=== PATIENT | female | born 1960 | race Caucasian/White ===

== ENCOUNTER 2020-08-06 11:21 | Observation (INO) | payer OTHER ==
[~2020-08-06] VITALS: Ht 157.5 cm; Wt 56.7 kg
--- NOTE | ~2020-08-06 | CON ---
[address] [address] CONSULTATION Name: NEMOJULIANNE J Room: [address] IN M.R.#: [id number] Admission: 08/06/20 Attend Phys: Dolly Mccoy Discharge: Date of : 64 Report #: [id number] THIS REPORT FOR: //name// cc: Benji Vega MD, Dean L. MD ~ THIS REPORT FOR: //name// CC: Benji Davidson DATE OF SERVICE: 08/06/2020 HISTORY OF PRESENT ILLNESS: This 59-year-old female patient who was evaluated by me for the possibility of stroke as I understand, but when I get the history from the patient, she said she is having pain in the neck, which radiates down to the right upper extremity. The patient was discussed with the Emergency Room physician, Dr. Raza. The patient has a prior history of laminectomy. She is also noticed weakness in the arm. She said the pain is similar to the one 3 years ago. She does appear to have urinary incontinence over the weekend. REVIEW OF SYSTEMS: Positive for pain as described above. She said she is not running any temperature. Her symptoms were reasonably controlled before that. She has not had any MRI done recently. She said she is not a diabetic. She had a hysterectomy. A 14-point review of system, according to her, is mostly noncontributory. PAST MEDICAL HISTORY: Positive for cervical laminectomy. FAMILY HISTORY: Unremarkable. SOCIAL HISTORY: She drinks alcohol occasionally. She does have a history of smoking. PHYSICAL EXAMINATION: The patient's examination is difficult to carry out because she is complaining of a lot of pain. Her higher functions and cranial nerve examination appear mostly unremarkable. As far as strength in the right upper and right lower extremity is concerned, it is difficult to tell because she says she is having a lot of pain in the right arm and that gives up. It is somewhere in the shoulder area. Her chest x-ray was mostly unremarkable. Cardiac and respiratory examination is noncontributory. Blood pressure is 130/72, respirations 16, pulse is 70, temperature is 97. LABORATORY DATA: Her hemoglobin is a trace high, but that is probably [place] [address] CONSULTATION Name: JULIANNE CHESTER Ny Room: [address]#: [id number] Admission: 08/06/20 Attend Phys: Dolly Mccoy Discharge: Date of : 64 Report #: [id number] IMPRESSION: I am concerned about this patient. She had a prior history of cervical problem and I am more concerned with the cervical spine, rather than the brain. I think we should go ahead and do a stat MRI in this patient, especially because she had some urinary incontinence. MRI was ordered, but I will make it stat and get it done tonight and see what it shows. I discussed all of it with the patient and I discussed MRIs indication, potential complication, and she understands that and she wants to proceed with it. Thank you very much for this referral. If you have any question, please feel free to contact me. By: [id number] Velez MD /parker
[2020-08-06 11:28] VITALS: BP 90/40
[2020-08-06] MEDS ORDERED: NEURONTIN 300M300 M2 PO (11:35)
[2020-08-06] MEDS ORDERED: HYDROCODON-ACE1 EAC7 PO (11:35)
[2020-08-06] MEDS ORDERED: TRAZODONE HCL50 MG PO (11:36)
[2020-08-06] MEDS ORDERED: RAYOS5 MG PO (11:36)
[2020-08-06 12:08] LABS: ABSOLUTE BASOPHILS 0.1 thou/uL (0.0-0.2); ABSOLUTE LYMPHOCYTES 2.2 thou/uL (0.8-5.3); ABSOLUTE MONOCYTES 0.4 thou/uL (0.0-1.2); ABSOLUTE NEUTROPHILS 5.6 thou/uL (1.6-8.1); BASOPHILS 1.2 %; EOSINOPHILS 0.2 %; HEMATOCRIT 48.5 % (37.0-47.0); HEMOGLOBIN 16.7 gm/dL (12.0-15.0); LYMPHOCYTES 26.5 %; MCH 33.5 pg (26.0-34.0); MCHC 34.5 g/dL (28.0-37.0); MCV 97.4 fL (80.0-100.0); MONOCYTES 4.4 %; MPV 7.3 fl. (7.2-11.1); NUCLEATED RBCS 0 /100WBC; PLATELET COUNT* 297 thou/uL (150-400); POLYS 67.7 %; RBC 4.98 mil/uL (4.20-5.00); RDW-CV 13.8 % (10.5-14.5); WBC 8.3 thou/uL (4.0-11.0)
[2020-08-06 12:19] LABS: CALCIUM 8.7 mg/dL (8.5-10.1); CREATININE 0.8 mg/dL (0.6-1.3); POTASSIUM 3.5 mmol/L (3.5-5.1)
[2020-08-06 12:22] LABS: INR 1.1; PROTIME 11.1 Seconds (9.20-11.50)
[2020-08-06 12:23] LABS: ALBUMIN 4.1 g/dL (3.4-5.0); TOTAL BILIRUBIN 0.4 mg/dL (<0.1-1.0); TOTAL PROTEIN 7.5 g/dL (6.4-8.2)
[2020-08-06 13:18] LABS: URINE BILIRUBIN NEGATIVE (Negative); URINE BLOOD NEGATIVE (Negative); URINE CLARITY CLEAR; URINE COLOR YELLOW; URINE GLUCOSE-RANDOM NEGATIVE (Negative); URINE KETONES NEGATIVE (Negative); URINE LEUKOCYTES-REFLEX NEGATIVE (Negative); URINE NITRITE-REFLEX NEGATIVE (Negative); URINE PROTEIN NEGATIVE (Negative); URINE SPECIFIC GRAVITY <= 1.005 (1.005-1.030); URINE UROBILINOGEN 0.2 E.U./dl (0.2-1.0)
[2020-08-06 18:10] VITALS: BP 130/72
[2020-08-07 04:10] VITALS: BP 119/66
[2020-08-07 06:06] LABS: HEMATOCRIT 42.8 % (37.0-47.0); MCH 33.8 pg (26.0-34.0); MCHC 34.5 g/dL (28.0-37.0); MCV 98.1 fL (80.0-100.0); MPV 7.5 fl. (7.2-11.1); RBC 4.36 mil/uL (4.20-5.00); RDW-CV 13.7 % (10.5-14.5); WBC 7.1 thou/uL (4.0-11.0)
[2020-08-07 06:14] LABS: CALCIUM 8.4 mg/dL (8.5-10.1); CREATININE 0.7 mg/dL (0.6-1.3); HEMOGLOBIN 14.7 gm/dL (12.0-15.0)
--- NOTE | 2020-08-07 07:57 | EKG ---
[place] [address] ELECTROCARDIOGRAM REPORT Name: JULIANNE CHESTER Room: [address] ADM IN .R.#: [id number] Admission: 08/06/20 Attend Phys: Jem Davidson Discharge: Date of : 64 Date of Service: 08/06/20 1222 Report #: [id number] THIS REPORT FOR: //name// [facility] ED Test Date: 2020-08-06 Test Time: 12:22:15 Pat Name: JULIANNE CHESTER Department: Room: [facility] Gender: F Hand Suture Winder: : 1960 Requested By: Yung Raza Order Number: [id number] MD: Gustavo Mojica Measurements Intervals [place] Rate: 69 P: 57 IA: 136 QRS: 37 QRSD: 85 T: 66 QT: 400 QTc: 429 Interpretive Statements Sinus rhythm No previous ECG available for comparison Electronically Signed On 08-07-2020 7:57:42 CDT by Gustavo Mojica [email or web address] <ELECTRONICALLY SIGNED> By: Gustavo Mojica MD, [facility] 08/07/20 0757 21 21 Gustavo Mojica MD, [facility] /EPI
[2020-08-07 08:30] VITALS: BP 144/78
[2020-08-07 12:15] VITALS: BP 122/74
[2020-08-07 17:09] VITALS: BP 121/64
[2020-08-07 20:00] VITALS: BP 107/66
[2020-08-08 04:00] VITALS: BP 120/70
[2020-08-08 08:00] VITALS: BP 124/74
[2020-08-08] MEDS ORDERED: PREDNISONE 10 M10 MG PO (08:20)
[2020-08-08] MEDS ORDERED: HYDROCODON-ACE1 EAC7 PO (08:20)
[2020-08-08] MEDS ORDERED: FLEXERIL PO (08:20)
[2020-08-08] MEDS ORDERED: TRAZODONE HCL50 MG PO (08:20)
[2020-08-08] MEDS ORDERED: NEURONTIN 300M300 M2 PO (08:20)
[2020-08-08] MEDS ORDERED: MIRALAX17 GM PO (09:03)
[2020-08-08] MEDS ORDERED: COLACE 100 MG100 MG PO (09:03)
[2020-08-08 11:13] VITALS: BP 124/74
[2020-08-08 14:07] LABS: ANA INTERPRETATION Negative (Negative)
== END 2020-08-08 11:38 | disposition home or self-care (01) ==
LOC: M.2W 13:23 → M.TBA-ER 13:23 → M.2W 19:20
PROVIDERS: Emergency Medicine Emergency Medical Services; Psychiatry & Neurology Neuromuscular Medicine; ADMIT Internal Medicine; ATTEND Internal Medicine
DX: M47.892 Other spondylosis, cervical region (principal); I95.9 Hypotension, unspecified; R53.1 Weakness; M48.02 Spinal stenosis, cervical region; M79.7 Fibromyalgia; Z79.899 Other long term (current) drug therapy; Z79.82 Long term (current) use of aspirin; Z20.828 Contact with and (suspected) exposure to other viral communicable diseases